=== PATIENT | male | born 1930 | race Caucasian/White ===

== ENCOUNTER → 2016-11-20 | Outpatient (CLI) | payer OTHER, MEDICARE ==
--- NOTE | ~2016-11-20 | NDGEN ---
PATIENT'S NAME: YADY PABLO [facility] AGE: 86 Y [address] ROOM: [place] [address] LOCATION: [facility] ADMIT DATE: 11/20/2016 Neurodiagnostics DISCHARGE DATE: FAMILY PHYSICIAN: PHYSICIAN, NO ATTENDING PHYSICIAN: KATT CHAPIN V. DATE OF PROCEDURE: 11/20/2016 PROCEDURE PERFORMED: Nerve conduction EMG of the bilateral upper extremities. INDICATIONS: This is an 86-year-old male patient, who has symptoms of pain that extend from the right wrist into the hands along with some numbness into the median distribution of the right hand. He has some variable complaints of some weakness into the bilateral upper extremities, somewhat worse in the left upper extremity. Thus, this nerve conduction EMG study was done to rule out any evidence of a focal neuropathy or cervical radiculopathy of the bilateral upper extremities. DESCRIPTION: The median, ulnar, and motor nerves in the left and right extremities were stimulated. There was severe slowing of the right median motor onset latencies with diminished amplitudes of the compound motor action potential seen. The right median sensory nerve showed severe slowing of the median sensory peak onset latencies into the 20s m/sec range consistent with a focal median neuropathy at the wrist. The ulnar, motor, and sensory nerves were all within normal limits. The left median motor and sensory nerves were well preserved with normal amplitudes, nerve conduction velocities, and peak latencies. The needle EMG was next performed. The needle was placed into the right abductor pollicis brevis muscle and found evidence of florid fibrillation potentials and positive sharp waves. Also, there was severely diminished recruitment of motor unit action potentials. The rest of the needle study of the right upper extremity was within normal limits testing the biceps, triceps, and deltoid muscles. The same muscles were also tested in the left upper extremity and no evidence of any focal changes in motor unit action potentials were seen. There was full recruitment of motor unit action potentials, otherwise, seen in the bilateral upper extremities, except in the right abductor pollicis brevis muscles. 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 ROOM: [place] [address] LOCATION: [facility] ADMIT DATE: 11/20/2016 Neurodiagnostics DISCHARGE DATE: FAMILY PHYSICIAN: PHYSICIAN, NO ATTENDING PHYSICIAN: KATT CHAPIN V. to 1.1 mV, and peak sensory nerve action potentials delayed at 5.7 milliseconds. 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 The needle EMG backs up the severe nature of the median neuropathy at the wrist by noting diminished recruitment of motor unit action potentials at voluntary recruitment as well as evidence for fibrillation and positive sharp waves seen with the abductor pollicis brevis muscle at rest. The patient should have carpal tunnel release surgery at the right wrist. MD NGOC CARPENTER/tonl /[id number] dtt: 12/03/16 1652 , CELIA LARA dtd: 11/20/16 1744
== END | disposition disaster alternative care site (69) ==
LOC: GNEU 14:34
DX: R20.0 Anesthesia of skin (principal); G62.9 Polyneuropathy, unspecified